=== PATIENT | male | born 1945 | race Two or more races ===

== ENCOUNTER 2018-07-24 10:29 | Inpatient (IN) | payer OTHER ==
[~2018-07-24] VITALS: Ht 170.2 cm; Wt 65.8 kg
[2018-07-24] MEDS ORDERED: TAMS0.4C (10:45)
[2018-07-24] MEDS ORDERED: COLACE100 MG (10:46)
[2018-07-24] MEDS ORDERED: POLY119PG (10:46)
[2018-07-24] MEDS ORDERED: [UNRECOGNIZED DRUG - OTHER] (10:46)
[2018-07-26] MEDS ORDERED: EPIFOAM FOAM10 GM (09:27)
[2018-07-26] MEDS ORDERED: CIALIS20 MG PO (09:29)
[2018-08-02] MEDS ORDERED: CIPRO500 MG PO (14:50)
[2018-08-02] MEDS ORDERED: BACTRIM DS TAB1 EACH PO (14:50)
[2018-08-02] MEDS ORDERED: Intestinex CAP PO (14:50)
[2018-08-02] MEDS ORDERED: TAMS0.4C PO (14:50)
[2018-08-02] MEDS ORDERED: ANUCORT-HC25 MG RECTAL (14:50)
[2018-08-02] MEDS ORDERED: FAMOTIDINE20 MG PO (14:50)
== END 2018-08-02 16:13 | disposition home or self-care (01) | DRG 690 ==
LOC: ER 10:29 → MEDJ 16:44 → MEDI 16:44
PROVIDERS: ADMIT Internal Medicine Geriatric Medicine
PROC: BW21ZZZ Computerized Tomography (CT Scan) of Abdomen and Pelvis (ICD-10-PCS; principal; 2018-07-24)
PROC: BV44ZZZ Ultrasonography of Scrotum (ICD-10-PCS; 2018-07-28)
PROC: BV44ZZZ Ultrasonography of Scrotum (ICD-10-PCS; 2018-07-31)
DX: N39.0 Urinary tract infection, site not specified (principal); E87.1 Hypo-osmolality and hyponatremia; R65.10 Systemic inflammatory response syndrome (SIRS) of non-infectious origin without acute organ dysfunction; N41.0 Acute prostatitis; N40.1 Benign prostatic hyperplasia with lower urinary tract symptoms; R33.8 Other retention of urine; B96.5 Pseudomonas (aeruginosa) (mallei) (pseudomallei) as the cause of diseases classified elsewhere; K64.8 Other hemorrhoids; D64.9 Anemia, unspecified

== ENCOUNTER 2018-08-10 09:56 | Outpatient (CLI) | payer OTHER ==
[~2018-08-10 09:56] MED LIST: ANUCORT-HC25 MG RECTAL; BACTRIM DS TAB1 EACH PO; CIALIS20 MG PO; CIPRO500 MG PO; COLACE100 MG; EPIFOAM FOAM10 GM; FAMOTIDINE20 MG PO; Intestinex CAP PO; POLY119PG; TAMS0.4C; TAMS0.4C PO; [UNRECOGNIZED DRUG - OTHER]
== END 2018-08-10 10:05 | disposition home or self-care (01) ==
LOC: LAB 09:56
DX: N30.00 Acute cystitis without hematuria (principal); R31.1 Benign essential microscopic hematuria

== ENCOUNTER 2018-08-16 09:29 | Outpatient (CLI) | payer OTHER | END 2018-08-16 09:31 | disposition home or self-care (01) | LOC: SONOGRAMA 09:29 → MAMO-SONO 10:15 | DX: N40.1 Benign prostatic hyperplasia with lower urinary tract symptoms (principal) ==

== ENCOUNTER → 2018-08-24 09:53 | Outpatient (CLI) | payer OTHER | END | disposition home or self-care (01) | LOC: LAB 09:53 | DX: R80.8 Other proteinuria (principal); N19 Unspecified kidney failure; K70.10 Alcoholic hepatitis without ascites; N39.0 Urinary tract infection, site not specified ==

== ENCOUNTER 2020-05-16 12:56 | Outpatient (CLI) | payer OTHER | END 2020-05-16 12:57 | disposition home or self-care (01) | LOC: LAB 12:56 | PROVIDERS: ATTEND Urology | DX: R97.20 Elevated prostate specific antigen [PSA] (principal) ==

== ENCOUNTER 2020-06-13 07:09 | Outpatient (CLI) | payer OTHER | END 2020-06-13 07:16 | disposition home or self-care (01) | LOC: SONOGRAMA 07:09 | PROVIDERS: ATTEND Urology | DX: C61 Malignant neoplasm of prostate (principal); D29.1 Benign neoplasm of prostate; R97.20 Elevated prostate specific antigen [PSA] ==

== ENCOUNTER 2020-06-20 14:30 | Outpatient (CLI) | payer OTHER | END 2020-06-20 14:34 | disposition home or self-care (01) | LOC: LAB 14:30 | PROVIDERS: ATTEND Urology | DX: N30.00 Acute cystitis without hematuria (principal) ==

== ENCOUNTER 2020-06-25 07:32 | Outpatient (CLI) | payer OTHER | END 2020-06-25 07:45 | disposition home or self-care (01) | LOC: TOM 07:32 | PROVIDERS: ATTEND Urology | DX: C61 Malignant neoplasm of prostate (principal); N40.0 Benign prostatic hyperplasia without lower urinary tract symptoms; R31.1 Benign essential microscopic hematuria ==

== ENCOUNTER 2020-07-18 07:14 | Outpatient (CLI) | payer OTHER | END 2020-07-18 07:16 | disposition home or self-care (01) | LOC: NUCLEAR 07:14 | PROVIDERS: ATTEND Urology | DX: C61 Malignant neoplasm of prostate (principal) | CPT/HCPCS: 78803; A9503 ==

== ENCOUNTER 2023-06-04 12:53 | Outpatient (CLI) | payer OTHER ==
[2023-06-04 13:58] LABS: PH,URINE 5.5 (5.0-8.0); URINE APPEARANCE Clear; URINE BILIRRUBIN Negative (NEGATIVE); URINE BLOOD Negative; URINE COLOR Yellow; URINE GLUCOSE Negative (NEGATIVE); URINE LEUKOCYTE Negative; URINE NITRATE Negative; URINE PROTEIN Negative (NEGATIVE); URINE UROBILINOGEN 0.2 E.U./dl
[2023-06-04 14:27] LABS: URINE BACTERIA 3.7 uL (0.0-1933); URINE RBC 0.7 uL (0.0-20.8); URINE WBC 0.9 uL (0.0-23.2)
== END 2023-06-04 12:54 | disposition home or self-care (01) ==
LOC: LAB 12:53
PROVIDERS: ATTEND Urology
DX: N40.0 Benign prostatic hyperplasia without lower urinary tract symptoms (principal); C61 Malignant neoplasm of prostate; R31.1 Benign essential microscopic hematuria

== ENCOUNTER 2023-06-04 13:31 | Outpatient (CLI) | payer OTHER | END 2023-06-04 13:42 | disposition home or self-care (01) | LOC: SONOGRAMA 13:31 | PROVIDERS: ATTEND Urology | DX: R31.0 Gross hematuria (principal) ==